=== PATIENT | male | born 1985 ===

== ENCOUNTER 2024-12-06 19:31 | Inpatient (IN) | payer MEDICAID ==
[~2024-12-06] VITALS: Ht 177.8 cm; Wt 70.1 kg
[2024-12-06] MEDS ORDERED: acetaminophen 325mg tablet PO PRN ×2 (21:25)
[2024-12-06] MEDS ORDERED: magnesium hydroxide 30ml (MOM) UD suspension PO PRN (21:25)
[2024-12-06] MEDS ORDERED: loperamide 2mg capsule PO PRN (21:25)
[2024-12-06] MEDS ORDERED: mag hydrox/Alum hydrox/simeth 30ml oral suspension PO PRN (21:25)
[2024-12-06 21:27] VITALS: RESP 16; O2SAT 98
[2024-12-06] MEDS: ibuprofen 200mg tablet PO PRN (22:11)
[2024-12-06] MEDS: ALPRAZolam 0.5mg tablet PO ONE (22:11)
[2024-12-07 07:30] VITALS: BP 129/70; PULSE 64; RESP 17; TEMP 97.9; O2SAT 98
[2024-12-07 08:23] LABS: BASOPHILS # (AUTO) 0.1 X10'3 (0-0.2); BASOPHILS % (AUTO) 0.8 % (0-1); EOSINOPHILS # (AUTO) 0.2 X10'3 (0-0.9); EOSINOPHILS % (AUTO) 3.4 % (0-6); HEMOGLOBIN 15.1 g/dl (14.0-17.9); LYMPHOCYTES # (AUTO) 3.4 X10'3 (1.1-4.8); LYMPHOCYTES % (AUTO) 47.7 % (21-51); MEAN CORPUSCULAR HEMOGLOBIN 29.8 PG (27.0-31.0); MEAN CORPUSCULAR HGB CONC 33.6 g/dL (33.0-36.5); MEAN CORPUSCULAR VOLUME 88.8 FL (78-98); MEAN PLATELET VOLUME 6.9 FL (7.4-10.4); MONOCYTES # (AUTO) 0.7 X10'3 (0-0.9); MONOCYTES % (AUTO) 10.5 % (2-12); NEUTROPHILS # (AUTO) 2.7 X10'3 (1.8-7.7); NEUTROPHILS % (AUTO) 37.6 % (42-75); PLATELET COUNT 303 X10'3 (140-440); RED BLOOD COUNT 5.07 X10'6 (4.70-6.10); RED CELL DISTRIBUTION WIDTH 13.4 % (11.5-14.5)
[2024-12-07 08:48] LABS: ALANINE AMINOTRANSFERASE 27 U/L (12-78); ALBUMIN 3.7 G/DL (3.4-5.0); ALBUMIN/GLOBULIN RATIO 1.3 (1.1-1.5); ALKALINE PHOSPHATASE 97 IU/L (46-116); ANION GAP 9 (8-16); ASPARTATE AMINO TRANSFERASE 18 U/L (10-37); BILIRUBIN,TOTAL 0.5 MG/DL (0.1-1.0); BLOOD UREA NITROGEN 22 MG/DL (7-18); BUN/CREATININE RATIO 26.5 (10.0-20.0); CALCIUM 8.9 MG/DL (8.5-10.1); CHLORIDE 106 MMOL/L (99-107); CREATININE 0.83 MG/DL (0.60-1.10); GLUCOSE 92 MG/DL (70-104); POTASSIUM 4.3 MMOL/L (3.5-5.1); SODIUM 142 MMOL/L (135-145); TOTAL CARBON DIOXIDE 26.9 MMOL/L (24-32); TOTAL PROTEIN 6.6 G/DL (6.4-8.2); eCRCL 117 ML/MIN; eGFR > 90 ML/MIN
[2024-12-07] MEDS: calcium carbonate 500mg tablet PO SCH (09:06)
[2024-12-07] MEDS: cholecalciferol (vitamin D3) 1,000 unit (25mcg) tablet PO SCH (09:06)
[2024-12-07 17:11] LABS: CHOL/HDL RATIO 4.5 (0.00-4.99); CHOLESTEROL 214 MG/DL (0-200); HDL CHOLESTEROL 48 MG/DL (35-60); LDL CHOLESTEROL 138 MG/DL (50-100); TRIGLYCERIDES 118 MG/DL (20-135)
[2024-12-07] MEDS ORDERED: hydrOXYzine 25 MG tablet PO PRN (18:40)
[2024-12-07] MEDS ORDERED: ondansetron 4mg rapidly disintigrating tab PO PRN (18:40)
[2024-12-07] MEDS ORDERED: diphenhydrAMINE 25mg capsule PO PRN (18:40)
[2024-12-07] MEDS ORDERED: chlorproMAZINE 25mg tablet PO PRN (18:40)
[2024-12-07] MEDS ORDERED: traZODone 50mg tablet PO PRN (18:40)
[2024-12-07 19:00] VITALS: RESP 16; O2SAT 97
[2024-12-07 20:00] VITALS: BP 130/84; PULSE 84; RESP 20; TEMP 97.8; O2SAT 97
[2024-12-07] MEDS: ALPRAZolam 0.5mg tablet PO ONE (20:20)
[2024-12-08 07:00] VITALS: BP 120/71; PULSE 64; RESP 16; TEMP 97.4; O2SAT 99
[2024-12-08 19:00] VITALS: RESP 16; O2SAT 98
[2024-12-08 20:00] VITALS: BP 121/87; PULSE 90; RESP 17; TEMP 98.3; O2SAT 98
[2024-12-08] MEDS: ALPRAZolam 0.5mg tablet PO ONE (22:05)
[2024-12-09 08:00] VITALS: BP 123/75; PULSE 62; RESP 18; TEMP 96.4; O2SAT 97
== END 2024-12-09 12:45 | disposition home or self-care (01) | DRG 754 ==
LOC: ADULT MH 20:20
PROVIDERS: ADMIT Psychiatry & Neurology Psychiatry; ATTEND Psychiatry & Neurology Psychiatry
PROC: GZHZZZZ Group Psychotherapy (ICD-10-PCS; principal; 2024-12-07)
PROC: GZ51ZZZ Individual Psychotherapy, Behavioral (ICD-10-PCS; 2024-12-07)
DX: F32.A Depression, unspecified (principal); R45.851 Suicidal ideations; E24.8 Other Cushing's syndrome; Z88.2 Allergy status to sulfonamides; Z88.3 Allergy status to other anti-infective agents
CPT/HCPCS: 36415; 80053; 80061; 85025; 87081; 99285